=== PATIENT | male | born 1995 | race Caucasian/White ===

== ENCOUNTER 2018-08-13 18:30 | Emergency (ER) | payer OTHER ==
--- NOTE | 2018-08-13 20:21 | RAD REPORT ---
EXAM DESCRIPTION: Shani Schmitt (2 Views)08/13/2018 8:12 pm CLINICAL HISTORY: Chest pain COMPARISON: None FINDINGS: The lungs appear clear of acute infiltrate. The heart is normal size IMPRESSION: No acute abnormalities displayed
[2018-08-13 21:06] LABS: ALT/SGPT 57 U/L (12-78); AST/SGOT 22 U/L (15-37); Albumin 4.5 g/dL (3.4-5.0); Alkaline Phosphatase 65 U/L (45-117); BUN Blood Urea Nitrogen 23 mg/dL (7-18); Bicarbonate 28 mmol/L (21-32); Bilirubin Direct < 0.1 mg/dL (0-0.2); Bilirubin Total 0.4 mg/dL (0.2-1.0); Glucose Level 73 mg/dL (74-106); Magnesium 2.3 mg/dL (1.8-2.4); Potassium 3.6 mmol/L (3.5-5.1); Protein, Total 8.2 g/dL (6.4-8.2); Sodium Level 137 mmol/L (136-145); Troponin (Emerg Dept Use Only) < 0.02 ng/mL (0.0-0.045)
[2018-08-13 21:12] LABS: NT PRO-BNP < 5 pg/mL (<125)
[2018-08-13 21:30] LABS: Protime INR 1.09
[2018-08-13] MEDS ORDERED: HYDROCODONE/APAP 5/325 MG TAB ONE (21:34)
[2018-08-13] MEDS ORDERED: KETOROLAC 30 MG/ML INJ ONE (21:35)
--- NOTE | 2018-08-13 21:48 | EDPHYS ---
Physician Documentation [facility] Name: Foreign Sapp Age: 22 yrs Sex: Male : 1995 Arrival Date: 08/13/2018 Time: 18:31 Bed 15 Private MD: ED Physician Josue Rosenthal HPI: 08/13 21:43 This 22 yrs old Male presents to ER via Ambulatory with complaints of Chest kb Pain. 21:45 The patient or guardian reports chest pain that is located primarily in the anterior kb chest wall, left. The pain does not radiate. Associated signs and symptoms: The patient has no apparent associated signs or symptoms. The chest pain is described as aching. Duration: The patient or guardian reports a single episode, that is still ongoing. Modifying factors: The symptoms are alleviated by activity. the symptoms are aggravated by rest. Severity of pain: At its worst the pain was mild moderate in the emergency department the pain is unchanged. The patient has not experienced similar symptoms in the past. The patient has been recently seen at an urgent care, last week, for similar complaints, X-rays were performed. 21:46 Pt reports left sided chest pain for 2 weeks. Worse when he is at rest. . kb Historical: - Allergies: 18:57 No Known Allergies; hb - Immunization history:: Adult Immunizations up to date. - Social history:: Smoking status: Patient/guardian denies using tobacco. - Ebola Screening: : No symptoms or risks identified at this time. ROS: 21:43 Constitutional: Negative for fever, chills, and weight loss, ENT: Negative for injury, kb pain, and discharge, Neck: Negative for injury, pain, and swelling, Respiratory: Negative for shortness of breath, cough, wheezing, and pleuritic chest pain, Abdomen/GI: Negative for abdominal pain, nausea, vomiting, diarrhea, and constipation, Back: Negative for injury and pain, : Negative for injury, bleeding, discharge, and swelling, MS/Extremity: Negative for injury and deformity, Skin: Negative for injury, rash, and discoloration, Neuro: Negative for headache, weakness, numbness, tingling, and seizure. 21:43 Cardiovascular: Positive for chest pain, Negative for edema, orthopnea, palpitations, paroxysmal nocturnal dyspnea. Exam: 21:45 Constitutional: This is a well developed, well nourished patient who is awake, alert, kb and in no acute distress. Head/Face: Normocephalic, atraumatic. ENT: Nares patent. No nasal discharge, no septal abnormalities noted. Tympanic membranes are normal and external auditory canals are clear. Oropharynx with no redness, swelling, or masses, exudates, or evidence of obstruction, uvula midline. Mucous membranes moist. Neck: Trachea midline, no thyromegaly or masses palpated, and no cervical lymphadenopathy. Supple, full range of motion without nuchal rigidity, or vertebral point tenderness. No Meningismus. Chest/axilla: Normal chest wall appearance and motion. Nontender with no deformity. No lesions are appreciated. Cardiovascular: Regular rate and rhythm with a normal S1 and S2. No gallops, murmurs, or rubs. Normal PMI, no JVD. No pulse deficits. Respiratory: Lungs have equal breath sounds bilaterally, clear to auscultation and percussion. No rales, rhonchi or wheezes noted. No increased work of breathing, no retractions or nasal flaring. Abdomen/GI: Soft, non-tender, with normal bowel sounds. No distension or tympany. No guarding or rebound. No evidence of tenderness throughout. Skin: Warm, dry with normal turgor. Normal color with no rashes, no lesions, and no evidence of cellulitis. MS/ Extremity: Pulses equal, no cyanosis. Neurovascular intact. Full, normal range of motion. Neuro: Awake and alert, GCS 15, oriented to person, place, time, and situation. Cranial nerves II-XII grossly intact. Motor strength 5/5 in all extremities. Sensory grossly intact. Cerebellar exam normal. Normal gait. Vital Signs: 18:55 BP 153 / 90; Pulse 82; Resp 16; Temp 97.8; Pulse Ox 98% on R/A; Pain 9/10; hb 21:00 BP 155 / 74; Pulse 71; Resp 16; Pulse Ox 97% on R/A; jb4 22:00 BP 145 / 93; Pulse 76; Resp 16; Pulse Ox 98% on R/A; jb4 MDM: 20:16 Patient medically screened. kb 21:45 Data reviewed: vital signs, nurses notes. Data interpreted: Pulse oximetry: on room air kb is 97 %. Interpretation: normal. 21:47 Counseling: I had a detailed discussion with the patient and/or guardian regarding: the kb historical points, exam findings, and any diagnostic results supporting the discharge/admit diagnosis, lab results, radiology results, the need for outpatient follow up, a family practitioner, to return to the emergency department if symptoms worsen or persist or if there are any questions or concerns that arise at home. 08/13 20:32 Order name: Basic Metabolic Panel; Complete Time: 21:13 08/13 20:32 Order name: CBC with Diff 08/13 20:32 Order name: LFT's; Complete Time: 21:13 08/13 20:32 Order name: Magnesium; Complete Time: 21:13 08/13 20:32 Order name: NT PRO-BNP; Complete Time: 21:13 08/13 20:32 Order name: PT-INR; Complete Time: 21:43 08/13 19:02 Order name: XRAY Chest Pa And Lat (2 Views); Complete Time: 20:24 az08/13 20:09 Order name: EKG; Complete Time: 20:09 08/13 20:09 Order name: EKG - Nurse/Tech; Complete Time: 20:09 az08/13 20:32 Order name: Troponin (emerg Dept Use Only); Complete Time: 21:13 08/13 20:32 Order name: Cardiac monitoring; Complete Time: 20:33 08/13 20:32 Order name: IV Saline Lock; Complete Time: 20:33 08/13 20:32 Order name: Labs collected and sent; Complete Time: 20:33 08/13 20:32 Order name: O2 Per Protocol; Complete Time: 20:33 08/13 20:32 Order name: O2 Sat Monitoring; Complete Time: 20:33 Administered Medications: 21:31 Drug: TORadol 30 mg Route: IVP; Site: right antecubital; jb4 22:08 Follow up: Response: No adverse reaction; Pain is decreased 4 21:31 Drug: [place] 5 mg-325 mg 1 tabs Route: PO; jb4 22:08 Follow up: Response: No adverse reaction; Pain is decreased 4 Disposition: 08/14 01:37 Co-signature as Attending Physician, Josue Rosenthal MD. Disposition: 08/13/18 21:47 Discharged to Home. Impression: Chest pain, unspecified. - Condition is Stable. - Discharge Instructions: Nonspecific Chest Pain, [id number]. - Medication Reconciliation Form, Thank You Letter, Antibiotic Education, Prescription Opioid Use form. - Follow up: Emergency Department; When: As needed; Reason: Worsening of condition. Follow up: Private Physician; When: 2 - 3 days; Reason: Recheck today's complaints, Continuance of care, Re-evaluation by your physician. Signatures: Dispatcher [employer] EDMS Aislinn Sierra, FRONT OFFICE SUPERVISOR-C FRONT OFFICE SUPERVISOR-CkSkye Troy RN RN ak1 Renetta Edmondson RN RN Kiel Hidalgo RN RN jb4 Josue Rosenthal MD MD Corrections: (The following items were deleted from the chart) 08/13 22:08 21:47 08/13/2018 21:47 Discharged to Home. Impression: Chest pain, unspecified. jb4 Condition is Stable. Forms are Medication Reconciliation Form, Thank You Letter, Antibiotic Education, Prescription Opioid Use. Follow up: Emergency Department; When: As needed; Reason: Worsening of condition. Follow up: Private Physician; When: 2 - 3 days; Reason: Recheck today's complaints, Continuance of care, Re-evaluation by your physician. kb
--- NOTE | 2018-08-13 21:48 | ER ---
Nurse's Notes [facility] Name: Foreign Sapp Age: 22 yrs Sex: Male : 1995 Arrival Date: 08/13/2018 Time: 18:31 Bed 15 Private MD: Diagnosis: Chest pain, unspecified Presentation: 08/13 18:56 Presenting complaint: Intermittent sharp left sided chest pain that radiates to upper hb back x 2 weeks. Transition of care: patient was not received from another setting of care. Onset of symptoms is unknown. Risk Assessment: Do you want to hurt yourself or someone else? Patient reports no desire to harm self or others. Care prior to arrival: None. 18:56 Method Of Arrival: Ambulatory hb 18:56 Acuity: JUDIE 3 hb Historical: - Allergies: 18:57 No Known Allergies; hb - Immunization history:: Adult Immunizations up to date. - Social history:: Smoking status: Patient/guardian denies using tobacco. - Ebola Screening: : No symptoms or risks identified at this time. Screenin:06 Abuse screen: Denies threats or abuse. Nutritional screening: No deficits noted. jb4 Tuberculosis screening: No symptoms or risk factors identified. Fall Risk IV access (20 points). Total Zuleta Fall Scale indicates No Risk (0-24 pts). Assessment: 20:06 General: Appears in no apparent distress. uncomfortable, Behavior is calm, cooperative, jb4 appropriate for age. Pain: Complains of pain in chest Pain radiates to back Pain currently is 7 out of 10 on a pain scale. at worst was 9 out of 10 on a pain scale. Quality of pain is described as sharp, stabbing, Pain began 2 weeks ago. Neuro: Level of Consciousness is awake, alert, obeys commands, Oriented to person, place, time, situation. Cardiovascular: Heart tones S1 S2 present Patient's skin is warm and dry. Respiratory: Airway is patent Respiratory effort is even, unlabored, Respiratory pattern is regular, symmetrical, Breath sounds are clear bilaterally. GI: No signs and/or symptoms were reported involving the gastrointestinal system. : No signs and/or symptoms were reported regarding the genitourinary system. EENT: No signs and/or symptoms were reported regarding the EENT system. Derm: Skin is intact, Skin is pink, warm \T\ dry. Musculoskeletal: Circulation, motion, and sensation intact. 21:00 Reassessment: Patient appears in no apparent distress at this time. Patient and/or jb4 family updated on plan of care and expected duration. Pain level reassessed. Patient is alert, oriented x 3, equal unlabored respirations, skin warm/dry/pink. 22:00 Reassessment: Patient appears in no apparent distress at this time. Patient and/or jb4 family updated on plan of care and expected duration. Pain level reassessed. Patient is alert, oriented x 3, equal unlabored respirations, skin warm/dry/pink. Patient states feeling better. Vital Signs: 18:55 BP 153 / 90; Pulse 82; Resp 16; Temp 97.8; Pulse Ox 98% on R/A; Pain 9/10; hb 21:00 BP 155 / 74; Pulse 71; Resp 16; Pulse Ox 97% on R/A; jb4 22:00 BP 145 / 93; Pulse 76; Resp 16; Pulse Ox 98% on R/A; jb4 ED Course: 18:31 Patient arrived in ED. rg4 18:56 Triage completed. hb 18:56 Arm band placed on. hb 18:59 EKG completed in triage. Results shown to MD. hb 20:00 Patient moved to radiology via wheelchair. az 20:06 Patient has correct armband on for positive identification. Bed in low position. Call jb4 light in reach. Side rails up X 1. pvc monitor on. Pulse ox on. NIBP on. 20:06 Inserted saline lock: 20 gauge in right antecubital area, using aseptic technique. jb4 Patient maintains SpO2 saturation greater than 95% on room air. 20:06 Initial lab(s) drawn, by me, sent to lab. jb4 20:09 X-ray completed. Patient tolerated procedure well. Patient moved back from radiology. az 20:11 XRAY Chest Pa And Lat (2 Views) In Process Unspecified. EDMS 20:13 Aislinn Sierra FNP-C is PHCP. kb 20:13 Josue Rosenthal MD is Attending Physician. kb 20:14 Kiel Hidalgo, NISA is Primary Nurse. jb4 22:00 No provider procedures requiring assistance completed. IV discontinued, intact, jb4 bleeding controlled. Administered Medications: 21:31 Drug: TORadol 30 mg Route: IVP; Site: right antecubital; jb4 22:08 Follow up: Response: No adverse reaction; Pain is decreased jb4 21:31 Drug: [place] 5 mg-325 mg 1 tabs Route: PO; jb4 22:08 Follow up: Response: No adverse reaction; Pain is decreased jb4 Outcome: 21:47 Discharge ordered by MD. ramos 22:07 Discharged to home ambulatory, with family. jb4 22:07 Condition: stable 22:07 Discharge instructions given to patient, family, Instructed on discharge instructions, follow up and referral plans. Demonstrated understanding of instructions, follow-up care. 22:08 Patient left the ED. jb4 Signatures: Dispatcher [employer] EDMS Aislinn Sierra, TOPPIECE CHOPPER-C TOPPIECE CHOPPER-Renetta Lainez RN Minnie Davis James, RN RN jb4 Syl Joseph
--- NOTE | 2018-08-14 14:02 | EKG ---
Test Date: 2018-08-13 Test Time: 18:57:15 Track Template Maker: JOSEFINA MEASUREMENT RESULTS: Intervals: Rate: 78 [place]: 134 QRSD: 94 QT: 358 QTc: 408 [place]: P: 54 NJ: 134 QRS: 31 T: 33 INTERPRETIVE STATEMENTS: Normal sinus rhythm with sinus arrhythmia Normal ECG No previous ECG available for comparison Electronically Signed On 08-14-18 13:59:01 AUDIT SENIOR ASSOCIATE by Ovidio Kemp
== END 2018-08-13 22:08 | disposition home or self-care (01) ==
LOC: ER 18:30
DX: R07.9 Chest pain, unspecified (principal)
CPT/HCPCS: 36415; 71046; 80048; 80076; 83735; 83880; 84484; 85025; 85610; 93005